=== PATIENT | male | born 1985 | race Caucasian/White ===

== ENCOUNTER 2023-08-23 12:28 | Day surgery (SDC) | payer BC ==
[2023-08-22 13:37] LABS: Potassium 4.5 mEq/L (3.5-5.1)
[2023-08-23] MEDS ORDERED: Ringers Lactate 1,000 ML IV ONE (12:59)
[2023-08-23] MEDS ORDERED: CEFAZOLIN SODIUM 1 GM/VIAL ONE (13:00)
--- NOTE | 2023-08-23 13:22 | EKG ---
Test Date: 2023-08-22 Test Time: 13:58:12 Nursing Informatics Specialist: BELA MEASUREMENT RESULTS: Intervals: Rate: 74 MS: 156 QRSD: 92 QT: 346 QTc: 384 [place]: P: 66 MS: 156 QRS: 74 T: 67 INTERPRETIVE STATEMENTS: Normal sinus rhythm Normal ECG No previous ECG available for comparison Electronically Signed On 08-23-23 13:19:42 HISTORIC INTERPRETER by Jesus Arrington
[2023-08-23] MEDS ORDERED: ONDANSETRON 4 MG/2 ML VIAL ONE ×2 (13:41→14:48)
[2023-08-23] MEDS ORDERED: GLYCOPYRROLATE 0.2 MG/ML SYR ONE (13:41)
[2023-08-23] MEDS ORDERED: ROCURONIUM 50 MG/5 ML VIAL IV ONE ×2 (13:41→14:35)
[2023-08-23] MEDS ORDERED: propofoL 200 MG/20 ML VIAL IV ONE ×2 (13:41→14:35)
[2023-08-23] MEDS ORDERED: NEOSTIGMINE 1 MG/ML -10 ML VIAL ONE (13:41)
[2023-08-23] MEDS ORDERED: LIDOCAINE 2% MPF 5 ML VIAL ONE (13:41)
[2023-08-23] MEDS ORDERED: MIDAZOLAM HCL 2 MG/2 ML INJ ONE ×2 (13:42→14:28)
[2023-08-23] MEDS ORDERED: FENTANYL CITR 100 MCG/2 ML ONE ×3 (13:42→15:16)
[2023-08-23] MEDS ORDERED: BUPIVACAINE 0.25% PF 30 ML VIAL ONE (14:13)
[2023-08-23] MEDS ORDERED: CLINDAMYCIN 600MG/D5W 50 ML IV ONE (14:29)
[2023-08-23] MEDS ORDERED: LIDOCAINE 1% MPF 5 ML VIAL ONE (14:35)
[2023-08-23] MEDS ORDERED: SUGAMMADEX SODIUM 200 MG/2 ML VIAL IV ONE (14:46)
[2023-08-23] MEDS ORDERED: dexAMETHasone 4 MG/ML VIAL ONE (14:48)
[2023-08-23] MEDS ORDERED: KETOROLAC 30 MG/ML INJ ONE (14:48)
--- NOTE | 2023-08-23 15:56 | P.OP ---
Preoperative diagnosis: RIGHT inguinal hernia Postoperative diagnosis: RIGHT inguinal hernia Primary procedure: Open RIGHT inguinal hernia repair with mesh Anesthesia: GETA + Local Estimated blood loss: <5cc Specimen: none Findings: indirect inguinal hernia, thin external oblique aponeurosis Complications: None Implants: Medium Bard Perfix Plug and Patch Transferred to: Recovery Room Condition: Good
[2023-08-23] MEDS ORDERED: MEPERIDINE HCL 25 MG/ML SYR ONE (16:15)
[2023-08-23] MEDS: HYDROMORPHONE HCL 2 MG/ML inj ONE ×4 (16:22→16:37)
[2023-08-23] MEDS: HYDROMORPHONE HCL 1 MG/ML INJ ONE ×4 (16:42→16:59)
[2023-08-23 17:06] VITALS: O2SAT 97
[2023-08-23 17:42] VITALS: BP 124/75; TEMP 97.7
--- NOTE | 2023-08-24 00:08 | OP ---
Date of Procedure: 08/23/2023 Surgeon: Mayco Ha MD, Preoperative Diagnosis: Right inguinal hernia. Postoperative Diagnosis: Right inguinal hernia. Procedure Performed: Open right inguinal hernia repair with mesh. Anesthesia: General endotracheal plus local with 1% Marcaine. Estimated Blood Loss: Less than 5 cc. Specimen: None. Findings: 1.Indirect inguinal hernia. 2.Thin external oblique aponeurosis. Complications: None. Implants: Bard medium PerFix plug and patch hernia repair system. The patient was transferred to recovery room in good condition. Procedure In Detail: After informed consent was obtained, the patient was brought to the operating r oom, prepped and draped in the usual sterile fashion after adequate anesthesia was achieved. I anest hetized an area of the right inguinal skin down to subcutaneous tissues, made an incision, dissected down through Camper's fat and Alfred's fascia to expose the external oblique aponeurosis. This was f ound to be quite thin and the spermatic cord structures could be seen underneath this quite easily. This was opened sharply with a knife followed by Metzenbaum scissors in its entirety down to the deep inguinal ring. At this point, the spermatic cord and structures were encircled and dissected down t o the medial aspect of the spermatic cord and structures and found to be an indirect inguinal hernia in close apposition to the spermatic cord and structures. It was dissected free using a combination of blunt dissection with electrocautery. Ultimately, the hernia sac was dissected free and placed in the preperitoneal space. I sized the hernia mesh appropriately and found a medium Bard PerFix plug and patch system. The patch was placed in the preperitoneal space and secured circumferentially arou nd using 4 interrupted 2-0 PDS sutures with good apposition of the mesh. At this point, the Bard Per Fix patch was sized appropriately, trimmed, and placed on the pubic tubercle medially and on the floo r of the inguinal canal under the spermatic cord and structures reconstitute the deep inguinal ring. It was secured using interrupted 2-0 PDS sutures on the internal aspect of the internal oblique apon eurosis on the undersurface of the inguinal ligament. The area was then copiously irrigated and suct ioned out until completely dry. The external oblique aponeurosis was then closed using interrupted 3 -0 Vicryl sutures and the deep dermal plane was then closed using the same set 3-0 Vicryl sutures in interrupted fashion and the skin was closed using a 4-0 Monocryl in a running fashion. Dermabond was placed over top. The patient tolerated the procedure well without incident or complication, transfe rred to PACU in good condition. All counts were correct at the end of the case. BENITA/VASU Voice ID: [id number] Report ID: [id number]
== END 2023-08-23 18:00 | disposition home or self-care (01) ==
LOC: OR 12:28
PROVIDERS: ATTEND Surgery
PROC: 0YU50JZ Supplement Right Inguinal Region with Synthetic Substitute, Open Approach (ICD-10-PCS; principal; 2023-08-23 14:15)
DX: K40.90 Unilateral inguinal hernia, without obstruction or gangrene, not specified as recurrent (principal)
CPT/HCPCS: 93005; 80048; 36415; 49505; J2704; J1100; J2001; J2250; J1170 ×3; J3010 ×2; J2175; J2405; J7120; J0690; J2710